=== PATIENT | female | born 1995 | race Caucasian/White ===

== ENCOUNTER 2017-12-20 21:19 | Inpatient (IN) | payer OTHER ==
--- NOTE | 2017-12-20 21:43 | ED ---
Psychiatric Complaint - HPI Summary HPI Summary: This patient is a 22 year old F presenting to [facility] with a chief complaint of paranoia that began in Oct, 2017 and worsened in the past week. The patient rates the pain 0/10 in severity. Symptoms aggravated by recent stress. Symptoms alleviated by nothing. Patient denies SI. Pt reports she was put on antidepressants on 09/2017. Pt reports she was hospitalized for her symptoms in [place]. Pt reports she returned from [place] yesterday. Patient reports she has a history of depression and anxiety. Pt states her brother is in the , and she is concerned for the safety of herself and her family due to this. - History Of Current Complaint Chief Complaint: EDMentalHealth Time Seen by Provider: 12/20/17 21:33 Hx Obtained From: Patient Hx Last Menstrual Period: 12/06/2017 ?: No Onset/Duration: Sudden Onset, Lasting Days, Still Present Timing: Constant Severity Initially: Mild Severity Currently: Mild Aggravating Factor(s): Recent Stress Alleviating Factor(s): Nothing Related History: Positive For: Prior Psychiatric Issues Has Suicidal: Denies: Thoughts Has Homicidal: Denies: Thoughts - Allergies/Home Medications Allergies/Adverse Reactions: Allergies Allergy/AdvReac Type Severity Reaction Status Date / Time No Known Allergies Allergy Verified 12/20/17 21:21 PMH/Surg Hx/FS Hx/Imm Hx Previously Healthy: No Opthamlomology History: Denies: Hx Legally Blind EENT History: Denies: Hx Deafness Psychiatric History: Reports: Hx Anxiety, Hx Depression Infectious Disease History: No Infectious Disease History: Reports: Traveled Outside the [place] in Last 30 Days - [facility] - Family History Known Family History: Positive: Cardiac Disease, Diabetes - Social History Occupation: Student Lives: With Family Alcohol Use: Occasionally Hx Substance Use: Yes Substance Use Type: Reports: Synthetic Drugs Hx Tobacco Use: No Smoking Status (MU): Never Smoked Tobacco Review of Systems Negative: Fever Psychological: Other - Positive paranoia. Negative SI All Other Systems Reviewed And Are Negative: Yes Physical Exam - Summary Physical Exam Summary: Appearance: Well-appearing, Well-nourished, lying in bed comfortably Skin: Warm, dry, no obvious rash Eyes: sclera anicteric, no conjunctival pallor ENT: mucous membranes moist, pharynx appears normal Neck: Supple, nontender Respiratory: Clear to auscultation, no signs of respiratory distress Cardiovascular: Normal S1, S2. No murmurs. Normal distal pulses in tibial and radial bilaterally. Abdomen: Soft, nontender, normal active bowel sounds present Musculoskeletal: Normal, Strength/ROM Intact Neurological: A&Ox3, awake and alert, mentation is normal, speech is fluent and appropriate Psychiatric: affect is normal, does not appear anxious or depressed Triage Information Reviewed: Yes Vital Signs On Initial Exam: Initial Vitals Temp Pulse Resp BP Pulse Ox 98.5 F 82 16 109/64 100 12/20/17 21:21 12/20/17 21:21 12/20/17 21:21 12/20/17 21:21 12/20/17 21:21 Vital Signs Reviewed: Yes Diagnostics - Vital Signs Vital Signs Temp Pulse Resp BP Pulse Ox 12/20/17 21:21 98.5 F 82 16 109/64 100 - Laboratory Result Diagrams: 12/20/17 22:12 12/20/17 22:12 Lab Statement: Any lab studies that have been ordered have been reviewed, and results considered in the medical decision making process. Course/Dx - Differential Dx/Clinical Impression Provider Diagnosis: Psychosis Discharge - Sign-Out/Discharge Documenting (check all that apply): Patient Departure - Discharge Plan Condition: Guarded Disposition: [place]ATR[place] [place]illing Disposition and Condition Condition: GUARDED Disposition: Psychiatric Facility [facility] [place]
[2017-12-20 22:29] LABS: ABS Basophils 0 10^3/ul (0-0.2); ABS Eosinophils 0.3 10^3/ul (0-0.6); ABS Lymphocytes 2.7 10^3/ul (1.0-4.8); ABS Monocytes 0.6 10^3/ul (0-0.8); ABS Neutrophils 3.9 10^3/ul (1.5-7.7); ABS Nucleated RBC 0 10^3/ul; Eosinophil % 4.2 % (0-6); Hematocrit 39 % (35-47); Hemoglobin 12.9 g/dl (12.0-16.0); Lymphocyte % 35.9 % (25-47); Mean Corpuscular HGB Conc 34 g/dl (31-36); Mean Corpuscular Hemoglobin 29 pg (27-31); Mean Corpuscular Volume 86 fL (80-97); Mean Platelet Volume 8.7 um3 (7.4-10.4); Nucleated Red Blood Cells % 0; Platelet Count 227 10^3/ul (150-450); Red Blood Count 4.47 10^6/ul (4.00-5.40); Red Cell Distribution Width 13 % (10.5-15); White Blood Count 7.6 10^3/ul (3.5-10.8)
[2017-12-20 22:38] LABS: EGFR Non-African American 103.9 (>60)
[2017-12-20 23:13] LABS: Urine Appearance Clear; Urine Blood Negative (Negative); Urine Color Straw; Urine Ketones Negative (Negative); Urine Protein Negative (Negative); Urine Red Blood Cell Absent (Absent); Urine Specific Gravity 1.006 (1.010-1.030); Urine Urobilinogen Negative (Negative); Urine White Blood Cell Trace(0-5/hpf) (Absent)
[2017-12-21] MEDS ORDERED: Al Hydrox/Mg Hydrox/Simet LIQ* 30 ML UDC PO PRN (07:54)
[2017-12-21] MEDS: Cetirizine* 10 MG TAB PO SCH (09:45)
[2017-12-21] MEDS: Vitamin THERAPEUTIC TAB PO SCH (09:45)
[2017-12-21] MEDS: Lactobacillus Acidophilus* 1 TAB PO SCH (09:45)
[2017-12-21] MEDS: CRANBERRY PO SCH (10:12)
[2017-12-21] MEDS: Acetaminophen TAB* 325 MG PO PRN (11:48)
[2017-12-21] MEDS ORDERED: [UNRECOGNIZED DRUG - OTHER] BOTH EYES PRN (17:53)
[2017-12-21] MEDS ORDERED: CMCS Escitalopram (NF) 10 MG TAB PO SCH (21:00)
[2017-12-21] MEDS ORDERED: ARIPiprazole TAB* 5 MG PO SCH (21:00)
[2017-12-21] MEDS ORDERED: traZODone TAB* 50 MG TAB PO PRN (21:00)
--- NOTE | 2017-12-21 22:04 | HP ---
HISTORY AND PHYSICAL: DATE OF ADMISSION: 12/21/17 IDENTIFYING DATA: Pauline is a 22-year-old female college student who was referred by her mother and she was admitted on a 9.39 emergency status. CHIEF COMPLAINT: "I asked my mom to bring me here, she did not decide I should come here!" HISTORY OF PRESENT ILLNESS: The patient relates that her difficulties started last spring when she started struggling with anxiety, recurrent panic attacks, recurrent periods of sad mood, decreased motivation, impaired attention and concentration and feelings of hopelessness, helplessness, and worthlessness. She went to student health services at her school, the [employer] and she established care there. She was started on Lexapro gradually increased to 10 mg daily and on Trazodone to 50 mg daily because of insomnia. The medications were helpful in regulating her mood and sleep. 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 After a couple of weeks being there, she started experiencing difficulty with sleep. She drank alcohol (not unusual for her) and she experimented MDMA on the weekends of 11/30/17 and 12/07/17. She became increasingly paranoid in the beginning of December 2017, she felt that she was being watched and followed that the HERMOSILLO card of her laptop had been switched to track her movements. As her symptoms worsened, she ended being the psychiatrically hospitalized in [facility] on 12/10/17. First in a [facility] hospital where she was taken off the Lexapro and the trazodone and after a couple of day to a [place] where she asserts she was prescribed olanzapine by mouth and IM, when she refused the pills. The patient contends that after a while being in the hospital, she was granted visitations, outside of the hospital compound with her mother, and during such a visitation, she eloped with the help of her brother and mother who had made travel arrangements to bring her back to the [facility]. The patient arrived back here with her mother on night 12/19/17. Her mother drove her to this hospital yesterday, less than 24 hours afterwards because of her increasingly irritability, mood lability , delusional thinking (paranoia, grandiosity) and insomnia. REVIEW OF PSYCHIATRIC SYMPTOMS: The patient denies being currently depressed, but describes past periods of more than 2-weeks with symptoms of low mood, anhedonia, difficulty with sleep, impaired attention and concentration, guilt, hopelessness, helplessness, and worthlessness. She denies previous suicide attempt or history of self injurious behavior or violence. The patient endorses for the past several weeks: symptoms of insomnia, decreased need for sleep, increased goal-directedness, engagement in activities with potential for consequences, racing thoughts, elated mood, increased creativity, paranoid, persecutory and grandiose delusions. She also reports recurrent panic attacks, excessive worrying, irritability, and muscle tension. She denies obsessive thoughts or compulsive rituals. She denies auditory or visual hallucinations. She denies symptoms of eating disorder. The patient relates that her last use of alcohol and any illicit substance was on 12/07/17. PAST PSYCHIATRIC HISTORY: As previously mentioned in the HPI. The patient was initially admitted to a [facility] hospital in [place] on 12/10/17 and for unclear reasons was transferred to [facility] after a couple of days where she remained admitted for about 6 to 7 days before finally eloping/leaving against medical advice. The patient has outpatient care with therapist Jovita Nelson in this community. She "skypes" with the therapist when she is at school and meets with her in person during school breaks. TRAUMA/ABUSE HISTORY: The patient denies. PAST MEDICAL HISTORY: Remarkable for bronchial asthma. The patient denies other active medical problems. She denies any history of head trauma with loss of consciousness, seizures or surgeries. PAST SURGICAL HISTORY: She had surgery to correct deviated nasal septum last October of 2017 at [place]. ALLERGIES: She has no known drug allergies. FAMILY HISTORY: The patient reports family history of alcohol dependence in her biological father. Her paternal aunt has a history of either schizophrenia or schizoaffective disorder. Maternal aunt with schizophrenia. The patient reports that her mother has borderline personality disorder, but concedes the mother was never formally diagnosed. SUBSTANCE ABUSE HISTORY: The patient admits to drinking alcohol sometimes to the point of intoxication every weekend while in college. She smokes marijuana occasionally, and she has experimented with MDMA twice. PERSONAL AND SOCIAL HISTORY: She is younger of 2 children from parents who when she was about 7 years old. She was actually born in [place] where her father is from. She grew up in [place] where she completed her high school. Following high school, she enrolled in the [employer] in [place]. She was granted a transfer to [place] at [employer] for her sophomore year. She attended for a semester, did not like it and she returned to [employer] in [place]. Meanwhile, her mother had moved to this area and stayed with her living boyfriend. The patient's mother is a mental health therapist but currently working as a geological science teacher at [employer]. The patient reports that her father has no formal education, but worked in the past in [employer] as a stock turner, he is unemployed currently. The patient is majoring in Sarsys studies with minor in Vietnamese. She identifies as being heterosexual, she denies currently dating, but asserts using safe sex practices. She describes a periodically strained relationship with her mother. She finds her mother overbearing. REVIEW OF MEDICAL SYMPTOMS: Negative. PHYSICAL EXAMINATION GENERAL: She is a well-appearing, 22-year-old white female, who does not appear to be in any acute physic distress. Alert, oriented x3. ADMISSION VITAL SIGNS: Blood pressure is 124/72, pulse is 124, respirations 16 , temperature 98.7. HEENT: Head: Atraumatic, normocephalic, symmetrical. Eyes: PERRLA. Tympanic membranes intact. Sclerae anicteric. Conjunctivae clear. NECK: Trachea midline, freely mobile. No cervical lymphadenopathy. No nuchal rigidity. LUNGS: Clear to auscultation bilaterally. HEART: Regular rate and rhythm. S1, S2. No murmurs, gallops, or rubs. BREASTS: Not performed. ABDOMEN: Soft, nontender. No masses, organomegaly, or rebound tenderness. Active bowel sounds in all 4 quadrants. EXTREMITIES: No pain or limitation in the range of movement. Pulses are equal and adequate in all 4 extremities. GENITAL EXAM: Not performed. RECTAL EXAM: Not performed. STRUCTURAL EXAM: The patient examined in both supine and upright positions. No gross AP or lateral asymmetry. Gait and movement are within normal limits. SKIN: Skin texture, turgor, and pigmentation are within normal limits. MENTAL STATUS EXAM: Finds an averagely build, 22-year-old white female with shoulder length brown hair, who looks her stated age. She is adequately groomed , casually dressed. She makes intense eye contact. She presents as psychotically-related. No abnormal movements are observed. Speech has a pressured quality. Her affect is irritable and labile, mood is anxious. She denies auditory or visual hallucinations, but endorses paranoid ideation that she is being watched, followed. There are evidence of delusions of grandeur. She extremely circumstantial in her thinking. Insight and judgment are grossly impaired. Impulse control is tenuous in this setting. She is alert and oriented to time, place, person. Attention, memory, and concentration are all poor. DIAGNOSTIC DATA/LABORATORY DATA: The patient's CBC, complete metabolic panel and urine toxicology screen were within normal limits. Urinalysis shows specific gravity of 1.006, trace of leukocyte esterase, presence of squamous epithelial cell, and 3+ bacteria. SUMMARY: A 22-year-old female with history of previous hospitalization(s), outpatient care, previous diagnosis of depression and anxiety, previous trial of Lexapro and trazodone, substance abuse, who was referred by her mother for treatment of manic episode with psychotic features. The patient's medical history is noncontributory. There is family history of mood, psychotic and substance use disorders in the close relatives. The patient describes stressors of strained relationship with her biological mother. DIAGNOSTIC IMPRESSIONS: 1. Bipolar disorder, current episode manic, severe, with psychotic features. 2. Unspecified anxiety disorder. 3. Rule out panic disorder with agarophobia. 4. Alcohol, cannabis and MDMA abuse. TREATMENT PLAN: Admit to mental health unit, 15-minute checks, full code status. Legal status is emergency. Initiate comprehensive milieu, individual, and group psychotherapeutic supports. The patient has agreed to not restarting Lexapro and trazodone and to instead start a trial of aripiprazole at bedtime and to also complete psychological testing to help clarify her diagnosis. Discharge planning will involve coordination of her aftercare with her outpatient psychiatric providers. [id number]/CPS #: [id number] GERARDO
[2017-12-22] MEDS: Vitamin THERAPEUTIC TAB PO SCH (09:16)
[2017-12-22] MEDS: Lactobacillus Acidophilus* 1 TAB PO SCH (09:16)
[2017-12-22] MEDS: Cetirizine* 10 MG TAB PO SCH (09:16)
[2017-12-22] MEDS: CRANBERRY PO SCH (09:16)
[2017-12-22] MEDS ORDERED: ARIPiprazole TAB* 5 MG PO SCH (21:00)
[2017-12-23] MEDS: Cetirizine* 10 MG TAB PO SCH (08:25)
[2017-12-23] MEDS: Lactobacillus Acidophilus* 1 TAB PO SCH (08:25)
[2017-12-23] MEDS: Vitamin THERAPEUTIC TAB PO SCH (08:26)
[2017-12-23] MEDS: CRANBERRY PO SCH (08:26)
[2017-12-23] MEDS: Acetaminophen TAB* 325 MG PO PRN (12:19)
--- NOTE | 2017-12-23 17:11 | PN ---
Subjective - Subjective Date of Service: 12/23/17 Service Type: 80378 Hosp care 35 min high complexity Subjective: Patient goes in to great detail about events leading to admission. She states that prior to interning in [place], she was prescribed Lexapro and trazodone with positive outcomes. She states that she felt euthymic and improved anxiety for the first time. Patient tells of experiences of traveling abroad to multiple countries and considers herself a savvy world traveler. Most recently, she was mistakenly driven by an Uber to another town in [facility] then found by police and taken to a hospital and agreed to be admitted voluntarily since the police would not drive her back to [place]. She had been going to great lengths to not include her mother but the hospital notified her and she flew to [facility]. Thomas states this triggered PTSD which appeared as doni. She was admitted to a hospital involuntarily for 5 days. She states this was a [facility]-like experience and was given multiple IMs of olanzapine. Her [facility] was brought to [place]. (Her mother and step father moved to [place] when patient was a sophomore at [employer].) She states that her one-time experience with MDMA has been over inflated. She states that she is primarily experiencing anxiety related to interactions with her mother. Objective - Appearance Appearance: Well Developed/Nourished Dysmorphic Features: No Hygiene: Normal Grooming: Well Kept - Behavior Psychomotor Activities: Normal Exhibits Abnormal Movement: No - Attitude and Relatedness Attitude and Relatedness: Cooperative Eye Contact: Good - Speech Quality: Unpressured Latencies: Normal Quantity: Appropriate - Mood Patient's Decription of Mood: "Anxious" - Affect Observed Affect: Good Affect Consistent with: Euthymia - Thought Process Patient's Thought Process: Over Inclusive Thought Content: No Passive Wish, No Suicidal Planning, No Homicidal Ideation, No Paranoid Ideation - Sensorium Experiencing Hallucinations: No, Sensorium is Clear Type of Hallucinations: Visual: No, Auditory: No, Command: No - Level of Consciousness Level of Consciousness: Alert Orientation: Yes Intact, Yes Orientated to Time, Yes Orientated to Place, Yes Orientated to Person - Impulse Control Impulse Control: Tenuous - Insight and Judgement Insight and Judgement: Fair - Group Participation Particating in Group Activities: Yes - Medication Management Medication Management Adherence: Yes Assessment - Assessment Merits Inpatient Hospitalization: For Immediate Safety, For Stabilization Inpatient DSM-V Dx: F39 Clinical Impression: 22yo white female with history of previous hospitalizations, depression and anxiety. She presented to ED with her mother for treatment of doni and psychosis. Patient expresses that she is reacting to relationship strain with her mother. Patient merits hospitalization for immediate safety, stabilization and diagnostic clarification. Plan - Plan Treatment Plan: Name: THOMAS JARVIS Birthdate: 1995 [id number] continue acute intensive psychiatric treatment. may decrease to q30min observation. DC aripiprazole. add lexapro 5mg qhs and change trazodone to qhs scheduled. Continued Medication Management: Start Medication Medications: Current Medications Acetaminophen (Tylenol Tab*) 650 mg PO Q4H PRN PRN Reason: PAIN or TEMP > 101 F Last Admin: 12/23/17 12:19 Dose: 650 mg Al Hydrox/Mg Hydrox/Simethicone (Maalox Plus*) 30 ml PO Q4H PRN PRN Reason: INDIGESTION Cetirizine HCl (Zyrtec*) 10 mg PO DAILY CA Last Admin: 12/23/17 08:25 Dose: 10 mg Lactobacillus Rhamnosus (Lactobacillus Acidophilus*) 1 tab PO DAILY CA Last Admin: 12/23/17 08:25 Dose: 1 tab Multivitamins (Theragran Tab*) 1 tab PO DAILY CA Last Admin: 12/23/17 08:26 Dose: 1 tab Pto Cranberry (Non (Formulary Med )) 1 dose PO DAILY CA Last Admin: 12/23/17 08:26 Dose: 1 dose Bilina Eye Drops 1 dose BOTH EYES TID PRN PRN Reason: ALLERGY SYMPTOMS - Discharge Plan Discharge Plan: Outpatient Follow Up Outpatient Program: Private Clinician(s)
[2017-12-23] MEDS ORDERED: Citalopram TAB* 10 MG PO SCH (21:00)
[2017-12-23] MEDS: traZODone TAB* 50 MG TAB PO SCH (21:21)
[2017-12-24] MEDS: CRANBERRY PO SCH (08:10)
[2017-12-24] MEDS: Cetirizine* 10 MG TAB PO SCH (08:10)
[2017-12-24] MEDS: Lactobacillus Acidophilus* 1 TAB PO SCH (08:10)
[2017-12-24] MEDS: Vitamin THERAPEUTIC TAB PO SCH (08:10)
--- NOTE | 2017-12-24 14:44 | PN ---
[facility]: Group Therapy Note - Service Type Service Type: 22242 Group Psychotherapy - Cognitive Behavioral Group Therapy ( CBT):Patient was attentive and participatory in CBT programming this morning, and remained in good behavioral control. Patient expressed positive insights regarding relevant treatment interventions and goals.
[2017-12-24] MEDS: Citalopram TAB* 10 MG PO SCH (14:48)
[2017-12-24] MEDS: hydrOXYzine HCL TAB* 25 MG PO PRN ×2 (16:02→22:19)
--- NOTE | 2017-12-24 21:59 | PN ---
Subjective - Subjective Date of Service: 12/24/17 Service Type: 48485 Hosp care 25 min moderate complexity Subjective: Patient slept well through the night. She has been fully participating in programming. She reports improved mood with moderate anxiety. She agrees to trial of hydroxyzine prn for anxiety. She continues to endorse anxiety in regards to interactions with her mother. She agrees to a family meeting. Objective - Appearance Appearance: Well Developed/Nourished Dysmorphic Features: No Hygiene: Normal Grooming: Well Kept - Behavior Psychomotor Activities: Normal Exhibits Abnormal Movement: Yes - Attitude and Relatedness Attitude and Relatedness: Cooperative Eye Contact: Good - Speech Quality: Unpressured Latencies: Normal Quantity: Appropriate - Mood Patient's Decription of Mood: "Anxious" - Affect Observed Affect: Good Affect Consistent with: Euthymia - Thought Process Patient's Thought Process: Coherent, Goal Directed Thought Content: No Passive Wish, No Suicidal Planning, No Homicidal Ideation, No Paranoid Ideation - Sensorium Experiencing Hallucinations: No, Sensorium is Clear Type of Hallucinations: Visual: No, Auditory: No, Command: No - Level of Consciousness Level of Consciousness: Alert Orientation: Yes Intact, Yes Orientated to Time, Yes Orientated to Place, Yes Orientated to Person - Impulse Control Impulse Control: Intact - Insight and Judgement Insight and Judgement: Good - Group Participation Particating in Group Activities: Yes - Medication Management Medication Management Adherence: Yes Assessment - Assessment Merits Inpatient Hospitalization: For Immediate Safety, For Stabilization, For Discharge Planning Inpatient DSM-V Dx: F39 Clinical Impression: 22yo white female with history of previous hospitalizations, depression and anxiety. She presented to ED with her mother for treatment of doni and psychosis. Patient expresses that she is reacting to relationship strain with her mother. Patient merits hospitalization for immediate safety, stabilization and diagnostic clarification. Plan - Plan Treatment Plan: Name: THOMAS JARVIS Birthdate: 1995 [id number] continue acute intensive psychiatric treatment. may decrease to q30min observation. allow computer use and staff pass. add hydroxyzine 25mg q6h prn anxiety, continue lexapro 5mg daily and change trazodone to qhs scheduled. Medications: Current Medications Acetaminophen (Tylenol Tab*) 650 mg PO Q4H PRN PRN Reason: PAIN or TEMP > 101 F Last Admin: 12/23/17 12:19 Dose: 650 mg Al Hydrox/Mg Hydrox/Simethicone (Maalox Plus*) 30 ml PO Q4H PRN PRN Reason: INDIGESTION Cetirizine HCl (Zyrtec*) 10 mg PO DAILY CA Last Admin: 12/24/17 08:10 Dose: 10 mg Citalopram Hydrobromide (Celexa Tab*) 10 mg PO DAILY [facility]; Protocol Last Admin: 12/24/17 14:48 Dose: 10 mg Hydroxyzine HCl (Atarax Tab*) 25 mg PO Q6H PRN PRN Reason: ANXIETY Last Admin: 12/24/17 16:02 Dose: 25 mg Lactobacillus Rhamnosus (Lactobacillus Acidophilus*) 1 tab PO DAILY CA Last Admin: 12/24/17 08:10 Dose: 1 tab Multivitamins (Theragran Tab*) 1 tab PO DAILY CA Last Admin: 12/24/17 08:10 Dose: 1 tab Pto Cranberry (Non (Formulary Med )) 1 dose PO DAILY CA Last Admin: 12/24/17 08:10 Dose: 1 dose Trazodone HCl (Desyrel Tab*) 50 mg PO BEDTIME CA Last Admin: 12/23/17 21:21 Dose: 50 mg
[2017-12-24] MEDS: traZODone TAB* 50 MG TAB PO SCH ×2 (22:13→22:49)
[2017-12-25 07:47] VITALS: BP 124/64
[2017-12-25] MEDS: CRANBERRY PO SCH ×2 (08:20→09:16)
[2017-12-25] MEDS: Lactobacillus Acidophilus* 1 TAB PO SCH (08:21)
[2017-12-25] MEDS: Vitamin THERAPEUTIC TAB PO SCH (08:21)
[2017-12-25] MEDS: Citalopram TAB* 10 MG PO SCH (08:21)
[2017-12-25] MEDS: Cetirizine* 10 MG TAB PO SCH (08:21)
[2017-12-25] MEDS: Acetaminophen TAB* 325 MG PO PRN (08:36)
--- NOTE | 2017-12-25 19:15 | CONS ---
PSYCHOLOGICAL REPORT: DATE OF CONSULT: 12/24/17 REASON FOR REFERRAL: Pauline was referred for assessment secondary to concerns regarding possible psychosis and/or doni. TEST ADMINISTERED: Pauline completed the [place] Multiphasic Personality Inventory-2 (MMPI-2) and was given feedback in individual conversation regarding results. She was also seen by this marketing copywriter in context of cognitive behavioral group psychotherapy on a regular basis since her admission. 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 In the past, she had been treated for depression while she was at the [facility] in [place] and had been taking Lexapro and trazodone secondary to insomnia. These medications were helpful for a time, but as she traveled to [facility], she began having increasing difficulties with sleep and described belief that someone had swapped her SIM card in her laptop, which was tracking her movements. She also apparently had taken MDMA on 2 different occasions in November of this year and was eventually hospitalized in early December. It seems unclear that it may be unrelated that her drug use and encroaching symptoms were part of her difficulties. She was hospitalized in [place] when she was prescribed some antipsychotics both by mouth as well as IM because she had been refusing to take her pills. Eventually , her mother flew to [facility] and eloped with her daughter to bring her back to [place], [place] where her mother is living. Her mother brought her to this hospital for continuing treatment. Pauline grew up in [place] [place] [facility] in [place] town [place] of [place] and decided to attend [employer] as a means of creating geographical space between she and her mother. She transferred to [place] after her freshman year and her mother eventually followed here and established home in [place] to be closer to her daughter. Her daughter described difficulties with adjustment in [place] and disliking the program and then decided to move back to complete her studies at the [employer] once again beginning her ryan year. She currently is entering her senior year school there and is majoring in leadership studies and is fluent in Malay. She expresses interest and eventually finding an employment and/or continuing studies in [place] and specifically in [place]. She also attended university internship in [place] in [place]. Brief conversation with her mother certainly confirms that Pauline had experienced some manic episode while in [facility] with illusion to other hypomanic experiences where she begins to express disorganized and circumstantial thinking and speech as well as some difficulties with recurrent paranoid mentation. Pauline describes a contentious relationship between she and her mother as she feels her mother is intrusive and describes her as experiencing borderline personality disorder. However, her mother describes how they remain in close contact despite her travels and Pauline often initiates communication with her. BEHAVIORAL OBSERVATIONS: Pauline was compliant with unit routine and in taking prescribed medications. She consistently attended and participated in group programming and was insightful and relevant in the group context. In individual session, however, Pauline would become somewhat circumstantial in discussion, although discussion remained coherent within the context of subject matter. However, she tends to be overinclusive in subject matter and tangential. She makes good eye contact and does not describe any delusional content during her stay while here. She does express positive insight regarding having had a manic experience while in [facility], but is somewhat defended around severity of symptoms. She denies drug or alcohol use as being problematic in encroaching symptomatology. Pauline would talk about how she was able to experience colors and engage in creative thought processes while in hypomanic state. She described having a tested IQ of 188 and was interested in conversation about how her experiences while in [facility] helped her for full potentials in intellect and creativity. She remained resentful that her mother traveled to [facility] to take her back to [place]. TEST RESULTS: Pauline provides a valid protocol on this administration of MMPI-2 , having reasonable endorsement of emotional duress and positive endorsement of emotional coping and self-esteem. She elevates 2 scales of concern including the paranoia scale (T = 78) as well as a hypomania scale (T = 72). It is felt that her endorsement of these items reflect her risk difficulties in thinking and the fact that she is likely to have bipolar 1 disorder. She also elevates the psychopathic deviate to a minor degree, but this does not seem to impact her decision making or behaviors. 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 Her very low score in social introversion index can also describe great interest in people and social events , but may tend towards superficially related relationships at times. IMPRESSION AND RECOMMENDATIONS: Pauline impresses as having improved rather quickly with medication compliance and unit routine while she was hospitalized. Her difficulties with sleep improved as she described getting good night's rest while she was here. She described having learned a great deal while here mostly just in regards to the humid condition and described being grateful for her experiences in life and family. She briefly describes her supportive brother who lives in [facility] has been very helpful to her and that she trusted his judgment very much. Pauline anticipates returning to [place] in a timely way and expresses her regrets about not being ever successfully complete her university internship in [facility]. Currently, she impresses as having fair insight in points of taking medications and in managing her symptoms, so she does not have a recurrent manic experience in the near term. [id number]/[facility] #: [id number] GERARDO
--- NOTE | 2017-12-26 16:36 | DS ---
CC: Jovita Nelson; [facility] DATE OF ADMISSION: 12/21/2017. DATE OF DISCHARGE: 12/25/2017. SUPERVISING PSYCHIATRIST: Dr. Toan Young (dictated by NAOMI Ruiz). 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 CONDITION AT THE TIME OF DISCHARGE: Improved. The patient is calm and in behavioral control. She reports anxiety in regards to interactions with her mother. She has been taking medication and participating fully in programming. Although she has been hypertalkative and overinclusive, she has not exhibited alison manic symptoms. The patient reports readiness to be discharged. She cites motivation to follow-up with an already scheduled appointment with an ENT in [place] the day after discharge. She has also been proactive in participating in discharge planning and secured follow-up appointments through [facility] for primary care and with her therapist Jovita Nelson LCSW. She has an appointment with her directly after discharge. The patient denies need for substance abuse treatment and she states no difficulty in abstaining from substance use. The patient participated in discharge meeting with her mother, step-father, and social worker clinical. MENTAL STATUS EXAM: Pauline is a 22-year-old, white female, domiciled college student who appears stated age. She is euthymic with a bright affect. She is cooperative and generally pleasant to be around. She is alert and oriented times three with good eye contact. Her speech is rapid and articulate with normal volume. Memory is 3/3. Thought content is negative for SI, HI, or delusions. There are no overt perceptual disturbances. Thought process is logical, goal- directed, and future oriented. Insight and judgment are good. Impulse control is good. Her fund of knowledge is excellent. DISCHARGE INSTRUCTIONS GIVEN TO THE PATIENT: A. Medications: Escitalopram 10 mg p.o. daily, Hydroxyzine 25 mg p.o. b.i.d. prn anxiety, Trazodone 50 mg p.o. at bedtime prn insomnia. The above prescriptions were electronically prescribed to [facility] in [place] for a month supply. B. Diet: Regular. C. Activity: Ambulation as tolerated. Tobacco cessation is not applicable. There are no pending labs or diagnostic studies at the time of discharge. D. Follow-up care: The patient will follow-up at [facility] with Estelita Fernando NP on December 26 at 10:40 a.m. and with Jovita Nelson LCSW as already scheduled. E. Substance abuse follow-up: No applicable. HOSPITAL COURSE - PART A: Please refer to H/P for full details. Reason for admission: The patient presented to the emergency department with her mother due to increased anxiety. There was concern of psychotic and manic behavior and inability for her to care for herself. The patient was evaluated in the emergency department and noted to be disorganized and unable to care for herself. She was admitted to the [facility] on 9.39 status. HOSPITAL COURSE - PART B: Psychiatric treatment rendered: The patient was admitted to the Adult Behavioral Services Unit and placed on voluntary status. Code status is full. She was placed on 15 minute checks for her safety. She was encouraged to participate in supportive milieu, individual sessions with staff, and psychoeducational groups. Due to concern of doni, the patient agreed to a trial of Aripiprazole. She reported untoward effects from this medication, including blurriness, sedation, and lightheadedness. The following day, the patient was calm and in behavior control. She was overinclusive and hyperverbal at times, but otherwise euthymic. She agreed to discontinue Aripiprazole and restart Citalopram and Trazodone as she had been prescribed this in the past and reported efficacy. Throughout the hospitalization, the patient reported distressing interactions with her mother. It was noted they had enmeshed and confusing boundaries with each other. The patient reported history of attempting to establish boundaries with her mother and has been doing this with the assistance of her brother. 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 While there, she experimented with MDMA. This resulted in two hospitalizations in [place]. During the latter, the patient was admitted involuntarily and medicated with emergency IM Olanzapine. Apparently, her mother and her brother concocted a plan to elope from the hospital during an off -campus pass and they flew back to the [facility]. SInce returning home, the patient continued to present in a disorganized manner and was brought to the emergency department by her mother. As stated above, while in hospital the patient was circumstantial in regards to interactions with her mother. She participated in a family meeting with her step- father and social worker clinical. The patient reported she has been working with a therapist for some time now and was diagnosed with PTSD. She denies active suicidal ideation. She presented as organized and in behavioral control. There was no observation of psychosis. The patient reported desire to be discharged and return to college at the [employer]. She exhibited future orientation and denied risk for harming. She also identified that her brother was visiting from [facility] and that he is a strong support. Due to obligation to treat in the least restrictive setting, the patient was discharged on the morning of December 25 with the plan to meet with her therapist that afternoon. The patient was also given much information in regards to PTSD and borderline personality disorder. She tolerated restarting medications well , noted to be euthymic and slept well. KATY CHRISTIAN NP [id number]/[facility] #: [id number] GERARDO
== END 2017-12-25 10:10 | disposition home or self-care (01) | DRG 753 ==
LOC: ED 21:19 → BSU 12-21 04:02
PROVIDERS: ADMIT Psychiatry & Neurology Psychiatry; ATTEND Psychiatry & Neurology Psychiatry
DX: F39 Unspecified mood [affective] disorder (principal); F31.2 Bipolar disorder, current episode manic severe with psychotic features; F41.9 Anxiety disorder, unspecified; F12.10 Cannabis abuse, uncomplicated; F10.10 Alcohol abuse, uncomplicated; F15.10 Other stimulant abuse, uncomplicated; Z81.1 Family history of alcohol abuse and dependence; Z81.8 Family history of other mental and behavioral disorders
CPT/HCPCS: 36415; 80053; 80061; 80307; 81003; 81015; 83036; 84443; 85025; 87086; 90853; 99222; 99232; 99233; 99285; A9270-GY